=== PATIENT | male | born 1965 | race African-American/Black ===

== ENCOUNTER 2021-05-11 15:01 | Inpatient (IN) ==
[2021-05-11 16:45] LABS: Osmolality,Calculated 279.4 MOS/KG (273-304); Potassium 3.8 MMOL/L (3.5-5.1)
[2021-05-11] MEDS ORDERED: ACETAMINOPHEN 325 MG TABLET PO PRN (17:21)
[2021-05-11] MEDS ORDERED: ONDANSETRON 4 MG/2 ML VIAL IV PRN (17:21)
[2021-05-11] MEDS: PIPERACILLIN/TAZOBACTAM 3,375 MG in SODIUM CHLORIDE 0.9% 100 ML IV SCH (17:41)
[2021-05-12] MEDS: PIPERACILLIN/TAZOBACTAM 3,375 MG in SODIUM CHLORIDE 0.9% 100 ML IV SCH ×3 (00:25→20:31)
[2021-05-12 05:50] LABS: Basophils % 0.3 % (0.0-0.8); Eosinophils # 0.1 10*3/uL (0.0-0.87); Eosinophils % 0.8 % (0.00-10.9); Hematocrit 41.5 VOL% (42.0-52.0); Hemoglobin 13.9 GM/DL (14.0-18.0); Immature Granulocytes % 0.3 %; Immature Granulocytes Absolute 0.04 #; Lymphocytes # 3.4 10*3/uL (1.4-4.0); Lymphocytes % 29.4 % (21.2-54.2); Mean Corpuscular HGB Conc 33.5 GM/DL (32-36); Mean Corpuscular Volume 85.2 FL (87-102); Mean Platelet Volume 10.9 FL (9.6-12.0); Monocytes % 8.8 % (1.7-12.7); Neutrophils % 60.4 % (38.7-73.9); Platelet Count 220 T/CUMM (130-400); Red Blood Count 4.87 MC/CUMM (3.8-5.5); Red Cell Distribution Width 14.6 % (9.3-17.3); White Blood Count 11.7 T/CUMM (4-12)
[2021-05-12 06:19] LABS: Calcium 8.5 MG/DL (8.5-10.1); Osmolality,Calculated 279.4 MOS/KG (273-304); Potassium 3.8 MMOL/L (3.5-5.1)
[2021-05-12] MEDS ORDERED: MIDAZOLAM 2 MG/2 ML VIAL ONE (10:43)
[2021-05-12] MEDS ORDERED: fentaNYL 100 MCG/2 ML VIAL ONE (10:43)
[2021-05-12] MEDS ORDERED: DEXAMETHASONE 4 MG/1 ML VIAL ONE ×2 (10:47→12:02)
[2021-05-12] MEDS ORDERED: LIDOCAINE 2% 5 ML VIAL ONE (10:47)
[2021-05-12] MEDS ORDERED: propofoL 200 MG/20 ML VIAL IV ONE (10:47)
[2021-05-12] MEDS ORDERED: ROCURONIUM 50 MG/5 ML VIAL IV ONE (10:47)
[2021-05-12] MEDS ORDERED: ONDANSETRON 4 MG/2 ML VIAL ONE (10:47)
[2021-05-12] MEDS ORDERED: BUPIVACAINE MPF 0.25% 30 ML VIAL ONE (10:47)
[2021-05-12] MEDS ORDERED: LIDOCAINE 1%/EPI INJ 20 ML VIAL ONE (10:47)
[2021-05-12] MEDS ORDERED: TISSUE ADHESIVE 1 EACH APPLICATOR TOP ONE (10:47)
[2021-05-12] MEDS ORDERED: SUCCINYLCHOLINE 200 MG/10 ML VIAL ONE (10:48)
[2021-05-12] MEDS ORDERED: LACTATED RINGERS 1,000 ML IV SCH (11:30)
[2021-05-12] MEDS: PANTOPRAZOLE 40 MG TABLET PO SCH (12:00)
[2021-05-12] MEDS ORDERED: PHENYLEPHRINE 1 MG/10 ML SYRINGE IV ONE (12:01)
[2021-05-12] MEDS ORDERED: DESFLURANE 1 UNIT/15 MINUTE INH ONE (12:01)
[2021-05-12] MEDS ORDERED: NEOSTIGMINE 10 MG/10 ML VIAL ONE (12:02)
[2021-05-12] MEDS ORDERED: GLYCOPYRROLATE 0.4 MG/2 ML VIAL ONE (12:02)
[2021-05-12] MEDS ORDERED: ONDANSETRON 4 MG/2 ML VIAL IV PRN (12:59)
[2021-05-12] MEDS ORDERED: HYDROmorphone 2 MG/1 ML VIAL IV PRN (12:59)
[2021-05-12] MEDS ORDERED: PHENOL 1.4% THROAT SPRAY 177 ML BOTTLE PO PRN (15:50)
[2021-05-12] MEDS ORDERED: TAMSULOSIN 0.4 MG CAPSULE PO SCH (21:00)
[2021-05-12] MEDS ORDERED: ATORVASTATIN 20 MG TABLET PO SCH (21:00)
[2021-05-13] MEDS: PIPERACILLIN/TAZOBACTAM 3,375 MG in SODIUM CHLORIDE 0.9% 100 ML IV SCH ×2 (02:33→08:43)
[2021-05-13] MEDS: PANTOPRAZOLE 40 MG TABLET PO SCH (08:06)
[2021-05-13 11:36] VITALS: BP 126/68
== END 2021-05-13 12:40 | disposition home or self-care (01) | DRG 343 ==
LOC: N.ED 15:01 → N.EDINP 15:49 → N.3E 17:11
PROVIDERS: ADMIT Surgery; ATTEND Surgery